=== PATIENT | male | born 1980 | race Caucasian/White ===

== ENCOUNTER 2021-04-01 06:53 | Day surgery (SDC) | payer BC ==
[2021-04-01] VITALS (10 sets, daily range): BP systolic 120–136; BP diastolic 68–88; PULSE 80–90; TEMP 98.9
[~2021-04-01] VITALS: Ht 180.3 cm; Wt 158.6 kg
[2021-04-01] MEDS ORDERED: PRINIVIL20 MG PO (07:22)
[2021-04-01] MEDS ORDERED: TRILIPIX 135MG PO (07:23)
[2021-04-01] MEDS ORDERED: LEXAPRO20 MG PO (07:24)
[2021-04-01] MEDS ORDERED: ASPIRIN E.C. 8181 MG PO (07:24)
[2021-04-01 08:00] LABS: HEMATOCRIT 50.3 % (42.0-52.0); HEMOGLOBIN 17.3 g/dl (13.5-18.0); MEAN CELL VOLUME 87 fl (80.0-100.0); MEAN CORPUSCULAR HEMOGLOBIN 30 pg (27.0-31.0); MEAN CORPUSCULAR HGB CONC 34 g/dl (33.0-37.0); MEAN PLATELET VOLUME 10.3 fl (7.4-10.4); PLATELET COUNT 322 K/mm3 (130-400); RED BLOOD COUNT 5.77 M/mm3 (4.20-5.60); REDCELL DISTRIBUTION WIDTH-CV 12.8 % (11.5-14.5)
[2021-04-01 08:03] LABS: PARTIAL THROMBOPLASTIN TIME 33.9 SECONDS (26.0-37.0)
[2021-04-01 08:09] LABS: CALCIUM 9.1 mg/dL (8.4-10.2); CREATININE, serum 0.98 (0.66-1.25); POTASSIUM 4.4 mmol/L (3.4-5.0)
--- NOTE | 2021-04-01 09:29 | NUR ---
SEE MERGE DOCUMENTATION FOR MEDICATION ADMINISTRATION TIMES AND INTRA/POST PROCEDURE SEDATION ASSESSMENTS.
--- NOTE | 2021-04-01 10:10 | NUR ---
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 pt is alert and oriented, pwd, TR band to rt wrist, cms intact distal. NSR on monitor. telemetry initiated. lunch ordered, call light in reach. denies pain or needs at this time.
[2021-04-01] MEDS ORDERED: EPA FISH OIL1 SGL PO (12:31)
--- NOTE | 2021-04-01 13:00 | NUR ---
TR band has been deflated with no problem. Site dressed with bandaid, folded 2x2 and coban. cms remains intact distal. I reviewed dc/rx and fu instructions with pt, who verbalized understanding and denied questions at time of departure. Pt has been ambulatory in room with steady gait. IV is dc'd with cath intact, dressing applied. Pt getting dressed at this time, will be escorted to exit via wheelchair.
== END 2021-04-01 13:20 | disposition home or self-care (01) ==
LOC: COL.CAR 06:53
PROVIDERS: Internal Medicine Cardiovascular Disease
DX: R94.39 Abnormal result of other cardiovascular function study (principal); I20.9 Angina pectoris, unspecified; I10 Essential (primary) hypertension; E78.2 Mixed hyperlipidemia; F32.9 Major depressive disorder, single episode, unspecified; F17.210 Nicotine dependence, cigarettes, uncomplicated; Z20.822 Contact with and (suspected) exposure to COVID-19; Z79.899 Other long term (current) drug therapy; Z79.82 Long term (current) use of aspirin
CPT/HCPCS: J1644; J2250; J3010; Q9967